=== PATIENT | female | born 1995 | race Caucasian/White ===

== ENCOUNTER 2018-02-03 16:16 | Emergency (ER) | payer OTHER ==
[2018-02-03 17:11] LABS: Basophils % (Auto) 0.4 % (0.0-1.8); Eosinophils # (Auto) 0.1 K/mm3 (0.0-0.4); Eosinophils % (Auto) 0.5 % (0.0-4.3); Hematocrit 36.8 % (30.3-42.9); Hemoglobin 12.1 gm/dl (10.1-14.3); Lymphocytes # (Auto) 3.3 K/mm3 (1.2-5.4); Lymphocytes % (Auto) 25.2 % (13.4-35.0); Mean Corpuscular HGB Conc 33 % (30-34); Mean Corpuscular Hemoglobin 27 pg (28-32); Mean Corpuscular Volume 81 fl (79-97); Monocytes # (Auto) 0.8 K/mm3 (0.0-0.8); Monocytes % (Auto) 6.5 % (0.0-7.3); Platelet Count 396 K/mm3 (140-440); Red Blood Count 4.54 M/mm3 (3.65-5.03); Red Cell Distribution Width 15.4 % (13.2-15.2)
[2018-02-03 17:18] LABS: Bilirubin,Urine NEG (Negative); Blood,Urine LG (Negative); Color,Urine Yellow (Yellow); Protein,Urine <15 mg/dL mg/dL (Negative); Urobilinogen,Urine < 2.0 mg/dL (<2.0)
--- NOTE | 2018-02-03 20:18 | Ultrasound Report ---
FINAL REPORT EXAM: US OB TRANSVAGINAL HISTORY: +hcg bleeding last menstrual period December 27, 2017. This corresponds to a clinical age of 5 weeks 3 days. Beta HCG of 2326. This corresponds to a gestational age of 4-5 weeks. TECHNIQUE: Transvaginal grayscale and color-flow imaging of the pelvis was performed. Comparison: Transabdominal study also performed today FINDINGS: The uterus measures 6.3 centimeters x 3.6 centimeters by 4.9 centimeters. There is increased thickness of the endometrium (13 millimeters). There is no demonstration of an intrauterine gestation. The right ovary measures 2.9 centimeters x 2 centimeters x 3 centimeters and contains an approximately 1.5 centimeter area of decreased echogenicity possible corpus luteum cyst. Flow is demonstrated in the right ovary utilizing color flow imaging. The left ovary measures 3.2 centimeters x 2.4 centimeters x 1.8 centimeters and contains an approximately 1.5 centimeter area of decreased echogenicity. Possible corpus luteum cyst. Flow is demonstrated in the left ovary utilizing color flow imaging. There appears to be a trace amount of free fluid demonstrated in the pelvis. IMPRESSION: 1. Increased thickness of the endometrium without demonstration of an intrauterine gestation. In the absence of demonstration of an intrauterine gestation, an ectopic gestation cannot be excluded. Short-term follow-up in correlation with beta HCG is recommended. 2. Appearance of trace amount of free fluid in the pelvis. 3. Areas of decreased echogenicity in the ovaries bilaterally, 1 of which may represent a corpus luteum cyst. The ovaries are otherwise unremarkable.
--- NOTE | 2018-02-03 20:24 | Ultrasound Report ---
FINAL REPORT EXAM: US OB < = 14 WEEKS FETUS HISTORY: +hcg bleeding TECHNIQUE: Transabdominal grayscale imaging of the pelvis was performed. Comparison: Transvaginal ultrasound also performed today FINDINGS: The urinary bladder is minimally distended which limits evaluation. Visualization detail of the uterus is limited. The uterus appears to measure approximately 8 centimeters x 3.9 centimeters by 4.8 centimeters. The ovaries are not well visualized. No free fluid is demonstrated in the pelvis. IMPRESSION: 1. Limited visualization of the uterus and ovaries due to under distention of the urinary bladder. Please see report of transvaginal study also performed today.
[2018-02-03] MEDS ORDERED: TYLENOL PO ONE (21:41)
[2018-02-03 22:02] VITALS: BP 121/67
--- NOTE | 2018-02-04 05:03 | Emergency Department Report ---
HPI - General Chief Complaint: Vaginal Bleeding Time Seen by Provider: 02/03/18 20:43 - HPI HPI: The patient is a 22-year-old female , unknown EGA, who presents for evaluation of abdominal pain and vaginal bleeding. The patient reports 1 day of lower abdominal cramping, constant since onset, mild in severity, and associated with scant vaginal bleeding. She shares that she took a positive home test one week ago. She has not received the dorsal confirming IUP. The patient denies fever, chills, night sweats, diarrhea, blood in the stool, dark tarry stool, dysuria, hematuria, flank pain, genital discharge, inability to pass flatus. ED Past Medical Hx - Past Medical History Previous Medical History?: No - Surgical History Past Surgical History?: No - Social History Smoking Status: Never Smoker Substance Use Type: None - Medications Home Medications: Home Medications Medication Instructions Recorded Confirmed Last Taken Type Acetaminophen [Tylenol] 1,000 mg PO Q6HR #30 tablet 02/03/18 Unknown Rx Pnv No.95/Ferrous Fum/Folic AC 1 each PO QDAY #31 tablet 02/03/18 Unknown Rx [ Vitamin Tablet] ED Review of Systems ROS: Stated complaint: POSS MISCARRIAGE (5WKS ) Other details as noted in HPI Constitutional: denies: fever ENT: denies: throat or neck pain Respiratory: denies: cough, shortness of breath Cardiovascular: denies: chest pain Endocrine: denies unexplained weight loss or gain Gastrointestinal: denies: abdominal pain, nausea Genitourinary: reports vaginal bleeding denies: dysuria Musculoskeletal: denies: leg swelling Skin: denies: rash Neurological: denies: headache Hematological/Lymphatic: denies: easy bleeding or easy bruising Psych: denies sadness or hopelessness Physical Exam - Physical Exam Vital Signs: Vital Signs 02/03/18 02/03/18 16:27 22:01 Temperature 99.5 F 98 F Pulse Rate 98 H 85 Respiratory 16 18 Rate Blood Pressure 118/74 Blood Pressure 121/67 [Right] O2 Sat by Pulse 96 100 Oximetry Physical Exam: General: well-nourished, well-developed, no acute distress Head: Normocephalic, atraumatic Eyes: normal sclera ENT: Mucous membranes are pink and moist Neck: trachea midline, neck supple, No neck stiffness, no cervical adenopathy Respiratory: Breath sounds equal bilaterally, no wheezing, rales, or rhonchi Cardio: S1 and S2 present, no murmurs, rubs, gallops, capillary refill is brisk Abdomen: Normoactive bowel sounds, soft abdomen, superior tenderness to palpation present, no rigidity, no guarding or rebound tenderness Chest WALL/Back: No tenderness to palpation of the chest wall, no CVA tenderness with percussion Musc: No pitting edema Skin: No rash Neuro: no facial drooping, normal speech Psych: Normal affect ED Course Vital Signs 02/03/18 02/03/18 16:27 22:01 Temperature 99.5 F 98 F Pulse Rate 98 H 85 Respiratory 16 18 Rate Blood Pressure 118/74 Blood Pressure 121/67 [Right] O2 Sat by Pulse 96 100 Oximetry ED Medical Decision Making - Lab Data Result diagrams: 02/03/18 16:48 - Medical Decision Making The patient was seen and examined by myself. The patient is placed on a cardiac cath rn and continuous pulse ox. On initial evaluation, the patient was found to be in no distress. Evaluation orders were placed. The patient was given pain medicine. Lab results exhibited positive beta hCG, 2300, and Rh+ blood type. Ultrasound of the pelvis was negative for intrauterine . The patient was informed of need to receive repeat beta hCG testing in 48 hours , and potential for ectopic progressive versus threatened miscarriage, versus early intrauterine gestation The patient was reevaluated and reported that their symptoms were markedly improved. The patient is stable for discharge with outpatient follow-up. The patient is given follow-up and return instructions. The patient expressed understanding and agreed with the plan. The patient is discharged in stable condition. Critical care attestation.: If time is entered above; I have spent that time in minutes in the direct care of this critically ill patient, excluding procedure time. ED Disposition Clinical Impression: Threatened miscarriage in early , Acute suprapubic pain Disposition: TO HOME OR SELFCARE Is pt being admited?: No Does the pt Need Aspirin: No Condition: Stable Instructions: Threatened Miscarriage (ED), Acute Abdominal Pain (ED) Prescriptions: Acetaminophen [Tylenol] 1,000 mg PO Q6HR #30 tablet Pnv No.95/Ferrous Fum/Folic AC [ Vitamin Tablet] 1 each PO QDAY #31 tablet Referrals: [facility] [Provider Group] - 3-5 Days PRIMARY CARE, [Primary Care Provider] - 3-5 Days Time of Disposition: 22:03
== END 2018-02-03 22:02 | disposition home or self-care (01) ==
LOC: ED 16:16
DX: O20.0 Threatened abortion (principal); Z3A.01 Less than 8 weeks gestation of pregnancy
CPT/HCPCS: 36415; 76801; 76817; 81001; 84702; 85025; 86850; 86900; 86901